=== PATIENT | male | born 1950 | race Two or more races ===

== ENCOUNTER 2022-06-09 08:53 | Emergency (ER) | payer OTHER, MEDICAID ==
[~2022-06-09] VITALS: Ht 170.2 cm; Wt 86.7 kg
[2022-06-09 09:48] VITALS: BP 146/76
== END 2022-06-09 14:21 | disposition left against medical advice (07) ==
LOC: ER 08:53
DX: M79.10 Myalgia, unspecified site (principal); Z53.21 Procedure and treatment not carried out due to patient leaving prior to being seen by health care provider